=== PATIENT | female | born 1970 | race Two or more races ===

== ENCOUNTER 2025-09-12 19:26 | Emergency (ER) | payer MEDICAID, OTHER ==
[~2025-09-12] VITALS: Ht 152.4 cm; Wt 71.0 kg
[2025-09-12 20:03] VITALS: TEMP 98.1
--- NOTE | 2025-09-12 21:49 | ED.PDOC ---
HPI Allergic reaction HPI Comments 55 y/o obese F presents with c/c of generalized bite chen, with associated rash and itchiness, to arms and legs. Patient endorses on 3x day history of symptoms after going to the beach and swimming in [place] in [place], while on vacation. She reports on returning from said country, today. Denies on any rash to her head or torso, neck swelling, shortness of breath, pain, or further associated symptoms. Chief Complaint: Rash Time Seen by MD: 20:40 Reviewed Notes: Nurses Notes, Medications, Allergies Allergies: Coded Allergies: Tramadol (Verified Allergy, Unknown, 09/12/25) Home Meds Active Scripts Prednisone (Prednisone) 20 Mg Tab, 20 MG PO BID for 5 Days, #10 TAB.CHEW Prov:BUCK MONROY MD 09/12/25 Hydroxyzine Pamoate (Vistaril) 25 Mg Cap, 1 CAP PO TID PRN, #90 CAP 1 Refill Prov:BUCK MONROY MD 09/12/25 Hydrocortone (Hydrocortisone 1%) 1 Applic Ap, 1 APPLIC TOP BID PRN, #30 GRAMS Prov:BUCK MONROY MD 09/12/25 Information Source: Patient Mode of Arrival: Ambulatory Past Medical History PAST MEDICAL HISTORY: Denies Surgical History: Denies all surgeries CONFIGURATION MANAGEMENT CONSULTANT History: No Pertinent CONFIGURATION MANAGEMENT CONSULTANT History Social History Smoker: Non-Smoker Alcohol: Denies ETOH Use Drugs: Denies Drug Use Lives In: Home All Other Systems: Reviewed and Negative (Comprehensive review of systems are negative unless stated in HPI) Physical Exam General Appearance: Mild Distress, Obese HEENT: Normal ENT Inspection, Pharynx Normal, TMs Normal Neck: Full Range of Motion, Non-Tender, Normal, Normal Inspection Respiratory: Chest Non-Tender, Lungs Clear, No Accessory Muscle Use, No Respiratory Distress, Normal Breath Sounds Cardiovascular: No Edema, No JVD, No Murmur, No Gallop, Normal Peripheral Pul ses, Regular Rate/Rhythm Breast Exam: Deferred Gastrointestinal: No Organomegaly, Non Tender, No Pulsatile Mass, Normal Bowel Sounds, Soft Genitalia: Deferred Pelvic: Deferred Rectal: Deferred Extremities: No calf tenderness, Normal capillary refill, Normal range of motion, Non-tender, No pedal edema, Other (scattered small macular rash to all extremities ) Musculoskeletal : Apperance: Normal Neurologic: Alert, outside laborer II-XII nml as Tested, No Motor Deficits, Normal Affect, Normal Mood, No Sensory Deficits Cerebellar Function: Normal Reflexes: Normal Skin: Dry, Normal Color, Rash (scattered small macular rash to all extremities ), Warm Lymphatic: No Adenopathy Was a procedure done? Was a procedure done?: No Differential diagnosis (all) Differential Diagnosis: Anaphylaxis, Angioedema, Contact Dermatitis, Urticaria X-Ray, Labs, Meds, VS Vital Signs Date Time Temp Pulse Resp B/P (MAP) Pulse Ox O2 Delivery O2 Flow Rate FiO2 09/12/25 23:16 75 13 111/67 (82) 98 09/12/25 21:29 76 18 124/71 (88) 96 09/12/25 20:03 Room Air* 0 21 09/12/25 20:03 98.1 75 13 130/84 (99) 99 98.1 09/12/25 19:48 98.2 92 20 132/76 98 98.2 Lab Test 09/12/25 21:24 Range/Units White Blood Count 7.3 4.4-10.8 10^3/uL Red Blood Count 3.91 L 4.0-5.20 10^6/uL Hemoglobin 11.5 L 12.2-16.2 g/dL Hematocrit 34.7 L 36.0-46.0 % Mean Corpuscular Volume 88.8 80.0-100.0 fL Mean Corpuscular Hemoglobin 29.5 28.0-32.0 pg Mean Corpuscular Hemoglobin Concent 33.2 32.0-36.0 g/dL Red Cell Distribution Width 14.3 11.8-14.3 % Platelet Count 355 140-450 10^3/uL Mean Platelet Volume 8.3 6.9-10.8 fL Neutrophils (%) (Auto) 55.3 37.0-80.0 % Lymphocytes (%) (Auto) 35.6 10.0-50.0 % Monocytes (%) (Auto) 6.5 0.0-12.0 % Eosinophils (%) (Auto) 1.5 0.0-7.0 % Basophils (%) (Auto) 1.1 0.0-2.0 % Neutrophils # (Auto) 4.0 1.6-8.6 10 ^3/uL Lymphocytes # (Auto) 2.6 0.4-5.4 10 ^3/uL Monocytes # (Auto) 0.5 0-1.3 10 ^3/uL Eosinophils # (Auto) 0.1 0-0.8 10 ^3/uL Basophils # (Auto) 0.1 0-0.2 10 ^3/uL Nucleated Red Blood Cells 0.2 % Sodium Level 143 136-145 mmol/L Potassium Level 4.1 3.5-5.1 mmol/L Chloride Level 107 98-107 mmol/L Carbon Dioxide Level 25 20-31 mmol/L Anion Gap 11 5-15 Blood Urea Nitrogen 11 9-23 mg/dL Creatinine 0.99 0.550-1.02 mg/dL Glomerular Filtration Rate Calc 68 >90 mL/min BUN/Creatinine Ratio 11.1 10.0-20.0 Serum Glucose 95 74-106 mg/dL Lactic Acid Level 1.6 0.4-2.0 mmol/L Calcium Level 9.0 8.7-10.4 mg/dL Total Bilirubin 0.3 0.2-1.0 mg/dL Aspartate Amino Transferase (AST) 23 13-40 U/L Alanine Aminotransferase (ALT) 30 7-40 U/L Alkaline Phosphatase 70 46-116 U/L Total Protein 7.0 5.7-8.2 g/dL Albumin 4.1 3.2-4.8 g/dL Current Medications Medications (Trade) Dose Ordered Sig/Dong Route Start Time Stop Time Status Last Admin Prednisone 40 mg ONCE ONCE PO 09/12/25 23:00 09/12/25 23:01 DC 09/12/25 23:13 Diphenhydramine HCl (Benadryl Capsule) 25 mg ONCE ONCE PO 09/12/25 23:00 09/12/25 23:01 DC 09/12/25 23:13 Time of 1ST Reevaluation: 21:20 Reevaluation 1ST: Unchanged Patient Education/Counseling: Treatment Family Education/Counseling: Treatment SEPSIS Sepsis Screen Date sepsis recognized/suspect: Sep 12, 2025 Time Sepsis recognized/suspect: 1949 Recent Procedure: No On Antibiotic Therapy: No Respiratory Rate >20: No Heart Rate >90: No Temp<36 C (96.8 F) or >38.3 C: No SBP <90 or MAP <65 mmHG: No New Acute Mental Status Change: No Is the patient on CPAP, BIPAP,: No Vital Signs Date Time Temp Pulse Resp B/P (MAP) Pulse Ox O2 Delivery O2 Flow Rate FiO2 09/12/25 23:16 75 13 111/67 (82) 98 09/12/25 21:29 76 18 124/71 (88) 96 09/12/25 20:03 Room Air* 0 21 09/12/25 20:03 98.1 75 13 130/84 (99) 99 98.1 09/12/25 19:48 98.2 92 20 132/76 98 98.2 Laboratory Tests Test 09/12/25 21:24 Lactic Acid Level 1.6 mmol/L (0.4-2.0) White Blood Count 7.3 10^3/uL (4.4-10.8) Medications Medications Dose Ordered Sig/Dong Route Start Time Stop Time Status Last Admin Dose Admin Diphenhydramine HCl 25 mg ONCE ONCE PO 09/12/25 23:00 09/12/25 23:01 DC 09/12/25 23:13 Prednisone 40 mg ONCE ONCE PO 09/12/25 23:00 09/12/25 23:01 DC 09/12/25 23:13 Departure 1 Departure Time of Disposition: 23:00 Impression: Primary Impression: Maculopapular rash Disposition: 01 HOME / SELF CARE / HOMELESS Condition: Stable e-Prescriptions Prednisone (Prednisone) 20 Mg Tab 20 MG PO BID for 5 Days, #10 TAB.CHEW Prov: BUCK MONROY MD 09/12/25 Hydroxyzine Pamoate (Vistaril) 25 Mg Cap 1 CAP PO TID PRN, #90 CAP 1 Refill Prov: BUCK MONROY MD 09/12/25 Hydrocortone (Hydrocortisone 1%) 1 Applic Ap 1 APPLIC TOP BID PRN, #30 GRAMS Prov: BUCK MONROY MD 09/12/25 Discharged With: Self Critical Care Note Critical Care Time?: No Stability Stability form required: No Heart Score Heart Score: Heart Score Response (Comments) Value History N/A 0 EKG N/A 0 Age N/A 0 Risk Factors N/A 0 Troponin N/A 0 Total 0 I personally scribed for BUCK MONROY MD ([email or web address]) on 09/12/25 at 21:49. Electronically submitted by Wisam Enriquez ([email or web address]). BUCK MONROY MD Sep 12, 2025 21:49
[2025-09-12 22:01] LABS: Hematocrit 34.7 % (36.0-46.0); Hemoglobin 11.5 g/dL (12.2-16.2); Mean Corpuscular Hemoglobin 29.5 pg (28.0-32.0); Mean Corpuscular Volume 88.8 fL (80.0-100.0); Nucleated Red Blood Cells % 0.2 %
[2025-09-12 22:18] LABS: Alanine Aminotransferase 30 U/L (7-40); Albumin 4.1 g/dL (3.2-4.8); Alkaline Phosphatase 70 U/L (46-116); Anion Gap 11 (5-15); BUN/Creatinine Ratio 11.1 (10.0-20.0); Bilirubin, Total 0.3 mg/dL (0.2-1.0); Blood Urea Nitrogen 11 mg/dL (9-23); Calcium 9.0 mg/dL (8.7-10.4); Carbon Dioxide 25 mmol/L (20-31); Chloride 107 mmol/L (98-107); Glucose 95 mg/dL (74-106); Potassium 4.1 mmol/L (3.5-5.1); Sodium 143 mmol/L (136-145); Total Protein 7.0 g/dL (5.7-8.2)
[2025-09-12] MEDS ORDERED: PRED20TA2 PO (22:52)
[2025-09-12] MEDS ORDERED: HYDR25CA PO (22:52)
[2025-09-12] MEDS ORDERED: HYD1TP TOP (22:52)
[2025-09-12] MEDS: predniSONE 20 MG TAB PO ONE (23:13)
[2025-09-12 23:16] VITALS: BP 111/67; PULSE 75; RESP 13; O2SAT 98
== END 2025-09-12 23:20 | disposition home or self-care (01) ==
LOC: ER 19:26
DX: R21 Rash and other nonspecific skin eruption (principal); Z88.5 Allergy status to narcotic agent
CPT/HCPCS: 36415; 80053; 83605; 85025; 99283; J7512